=== PATIENT | male | born 1995 | race Caucasian/White ===

== ENCOUNTER 2018-01-08 14:00 | Emergency (ER) | payer SELFPAY ==
[2018-01-08 14:29] LABS: Absolute Lymphocytes (CBC) 2.1 K/uL (0.7-4.9); Absolute Monocytes 0.7 K/uL (0.1-1.3); Absolute Neutrophil 2.3 K/uL (1.8-8.0); Basophils % 0.5 % (0-1.3); Eosinophils % 4.9 % (0-4.4); Hematocrit 41.8 % (39.6-49.0); Lymphocytes % 38.9 % (15.3-44.8); MCH 29.7 pg (27.0-35.0); MCV 86.3 fL (80-100); MPV 8.3 fL (7.6-11.3); Monocytes % 12.3 % (3.3-12.3); RBC Red Blood Cell Count 4.84 M/uL (4.33-5.43)
[2018-01-08 14:34] LABS: Protime INR 0.99
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
[2018-01-08 14:46] LABS: Potassium 3.9 mmol/L (3.5-5.1)
[2018-01-08] MEDS ORDERED: NA CHLORIDE 0.9% 1,000 ML ONE (14:50)
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
== END 2018-01-08 15:33 | disposition home or self-care (01) ==
LOC: ER 14:00
DX: T14.90XA Injury, unspecified, initial encounter (principal); V43.52XA Car driver injured in collision with other type car in traffic accident, initial encounter; Y92.410 Unspecified street and highway as the place of occurrence of the external cause; F17.210 Nicotine dependence, cigarettes, uncomplicated
CPT/HCPCS: 36415; 70450; 71260; 72125; 74177; 80048; 80320; 85025; 85610; 85730; 86850; 86900; 86901; 96360; 99285; J7030; Q9967